=== PATIENT | male | born 1995 | race Caucasian/White ===

== ENCOUNTER 2017-11-01 23:13 | Emergency (ER) | payer BC ==
--- NOTE | 2017-11-02 01:16 | ED Physician Documentation ---
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 He took his pulse (manually) and rate was 130s. He felt subsequent, sudden improvement followed by episodic rapid palpitations. He had glass of wine earlier tonight as well as edible cannabis, but he has had the same amount of the same cannabis many times before and has not has similar reaction Review of Systems Cardiac: reports: Palpitations. denies: Chest pain / pressure, Pedal edema, Calf pain Respiratory: reports: Reviewed and negative GI: reports: Reviewed and negative Musculoskeletal: denies: Extremity swelling Neurologic: reports: Reviewed and negative PD PAST MEDICAL HISTORY - Past Medical History Past Medical History: No - Past Surgical History Past Surgical History: No - Allergies Allergies/Adverse Reactions: Allergies Allergy/AdvReac Type Severity Reaction Status Date / Time No Known Drug Allergies Allergy Verified 11/01/17 23:23 - Social History Does the pt smoke?: No Smoking Status: Never smoker Does the pt drink ETOH?: No Substance Use and Type: Marijuana - Immunizations Immunizations are current?: No PD ED PE NORMAL - Vitals Vital signs reviewed: Yes - General General: Alert and oriented X 3, No acute distress, Well developed/nourished - HEENT HEENT: Moist mucous membranes - Cardiac Cardiac: RRR, No murmur, No gallop, No rub - Respiratory Respiratory: No respiratory distress, Clear bilaterally - Abdomen Abdomen: Soft, Non tender - Derm Derm: Normal color, Warm and dry - Extremities Extremities: No edema Results - Vitals Vitals: Oxygen O2 Source Room air - Labs Labs: Laboratory Tests 11/02/17 11/02/17 01:46 01:46 WBC 7.3 RBC 4.80 Hgb 15.0 Hct 41.8 L MCV 86.9 MCH 31.2 H MCHC 35.9 RDW 12.7 Plt Count 226 MPV 9.0 Neut # 5.1 Lymph # 1.4 L [place] # 0.7 Eos # 0.0 Baso # 0.0 Absolute Nucleated RBC 0.00 Nucleated RBC % 0.0 Sodium 133 L Potassium 3.4 L Chloride 99 L Carbon Dioxide 22 Anion Gap 12.0 BUN 15 Creatinine 0.9 Estimated GFR (MDRD) 107 Glucose 104 H Calcium 9.5 Total Bilirubin 4.4 H AST 20 ALT 14 Alkaline Phosphatase 41 L Total Protein 7.6 Albumin 5.1 Globulin 2.5 Albumin/Globulin Ratio 2.0 Lipase 11 L PD MEDICAL DECISION MAKING - ED course Complexity details: reviewed results, re-evaluated patient, considered differential, d/w patient ED course: Patient had sinus rhythm during ED stay on monitor with occasional elevations to 120s and 130 [address] without BP abnormalities. blood tests are nondiagnostic; bilirubin is rather elevated (4.4) but no other significant liver test abnormalities. I discussed test results with patient and advised him to return if worse but to f/u with PMD for possible other tests and/or retest of abnormal tests. [place], Rotors syndrome are included on differential at this time. Departure - Departure Disposition: 01 Home, Self Care Clinical Impression: Palpitations, Hyperbilirubinemia Condition: Good Instructions: ED Palpitations Comments: Follow up with your primary care physician within 1 week. Your bilirubin was elevated today; this would not explain the symptoms you have been having, but you might need further testing to determine the reason for this abnormal test. Discharge Date/Time: 11/02/17 03:36
[2017-11-02 01:57] LABS: BASOPHILS % (AUTO) 0.6 %; EOSINOPHILS % (AUTO) 0.6 %; LYMPHOCYTES # (AUTO) 1.4 10^3/uL (1.5-3.5); LYMPHOCYTES % (AUTO) 19.5 %; MEAN CORPUSCULAR HEMOGLOBIN 31.2 pg (27.0-31.0); MEAN CORPUSCULAR HGB CONC 35.9 g/dL (32.0-36.0); MEAN CORPUSCULAR VOLUME 86.9 fL (80.0-94.0); MONOCYTES # (AUTO) 0.7 10^3/uL (0.0-1.0); MONOCYTES % (AUTO) 9.2 %; NEUTROPHILS # (AUTO) 5.1 10^3/uL (1.5-6.6); NEUTROPHILS % (AUTO) 70.1 %; PLT - PLATELET COUNT 226 10^3/uL (130-450); RED CELL DISTRIBUTION WIDTH 12.7 % (12.0-15.0); WHITE BLOOD COUNT 7.3 x10^3/uL (4.8-10.8)
[2017-11-02 02:07] LABS: ALBUMIN 5.1 g/dL (3.2-5.5); BILIRUBIN,TOTAL 4.4 mg/dL (0.2-1.0); CALCIUM 9.5 mg/dL (8.5-10.3); CREATININE 0.9 mg/dL (0.6-1.2); TOTAL PROTEIN 7.6 g/dL (6.7-8.2)
[2017-11-02 03:11] VITALS: BP 108/62
== END 2017-11-02 03:36 | disposition home or self-care (01) ==
LOC: ED 23:13
DX: R00.2 Palpitations (principal); E80.6 Other disorders of bilirubin metabolism
CPT/HCPCS: 36415; 80053; 83690; 85025; 99283

== ENCOUNTER 2017-11-08 13:52 | Outpatient (CLI) | payer BC ==
[2017-11-08 17:56] LABS: ALBUMIN 5.3 g/dL (3.2-5.5); ALBUMIN/GLOBULIN RATIO 1.8 (1.0-2.2); BILIRUBIN,TOTAL 2.3 mg/dL (0.2-1.0); CALCIUM 9.6 mg/dL (8.5-10.3); CREATININE 0.8 mg/dL (0.6-1.2); TOTAL PROTEIN 8.3 g/dL (6.7-8.2)
[2017-11-08 18:02] LABS: BASOPHILS % (AUTO) 0.6 %; EOSINOPHILS # (AUTO) 0.1 10^3/uL (0.0-0.7); EOSINOPHILS % (AUTO) 2.7 %; HGB - HEMOGLOBIN 15.7 g/dL (14.0-18.0); LYMPHOCYTES # (AUTO) 2.1 10^3/uL (1.5-3.5); LYMPHOCYTES % (AUTO) 41.8 %; MEAN CORPUSCULAR HEMOGLOBIN 30.5 pg (27.0-31.0); MEAN CORPUSCULAR HGB CONC 34.5 g/dL (32.0-36.0); MEAN CORPUSCULAR VOLUME 88.6 fL (80.0-94.0); MEAN PLATELET VOLUME 10.1 fL (7.4-11.4); MONOCYTES # (AUTO) 0.4 10^3/uL (0.0-1.0); MONOCYTES % (AUTO) 8.7 %; NEUTROPHILS # (AUTO) 2.3 10^3/uL (1.5-6.6); NEUTROPHILS % (AUTO) 46.2 %; PLT - PLATELET COUNT 246 10^3/uL (130-450); RED BLOOD COUNT 5.13 10^6/uL (4.70-6.10)
== END 2017-11-08 13:53 | disposition home or self-care (01) ==
LOC: LAB.F 13:52
PROVIDERS: ATTEND Physician Assistant Medical
DX: R17 Unspecified jaundice (principal)
CPT/HCPCS: 36415; 80053; 85025

== ENCOUNTER 2017-11-13 14:26 | Emergency (ER) | payer BC ==
--- NOTE | 2017-11-13 15:17 | XRAY Preliminary Report ---
Exam: XR CHEST 2 VIEW X-RAY IMPRESSION: No acute cardiopulmonary abnormality. [facility] SITE ID: [id number]
--- NOTE | 2017-11-13 15:17 | XRAY Report ---
EXAM: CHEST RADIOGRAPHY EXAM DATE: 11/13/2017 03:04 PM. CLINICAL HISTORY: Chest pain. COMPARISON: None. TECHNIQUE: 2 views. FINDINGS: Lungs/Pleura: No focal opacities evident. No pleural effusion. No pneumothorax. Normal volumes. Mediastinum: Normal cardiomediastinal contour. Other: Mild convex curvature of the upper thoracic spine. IMPRESSION: No acute cardiopulmonary abnormality. [facility] Referring Provider Line: [phone] SITE ID: [id number]
[2017-11-13 15:30] LABS: BASOPHILS % (AUTO) 0.6 %; EOSINOPHILS # (AUTO) 0.3 10^3/uL (0.0-0.7); EOSINOPHILS % (AUTO) 5.7 %; HGB - HEMOGLOBIN 15.4 g/dL (14.0-18.0); LYMPHOCYTES # (AUTO) 1.7 10^3/uL (1.5-3.5); LYMPHOCYTES % (AUTO) 34.7 %; MEAN CORPUSCULAR HEMOGLOBIN 30.5 pg (27.0-31.0); MEAN CORPUSCULAR HGB CONC 34.6 g/dL (32.0-36.0); MEAN CORPUSCULAR VOLUME 88.2 fL (80.0-94.0); MEAN PLATELET VOLUME 9.5 fL (7.4-11.4); MONOCYTES # (AUTO) 0.5 10^3/uL (0.0-1.0); MONOCYTES % (AUTO) 9.4 %; NEUTROPHILS # (AUTO) 2.5 10^3/uL (1.5-6.6); NEUTROPHILS % (AUTO) 49.6 %; PLT - PLATELET COUNT 248 10^3/uL (130-450); RED BLOOD COUNT 5.03 10^6/uL (4.70-6.10); RED CELL DISTRIBUTION WIDTH 12.7 % (12.0-15.0)
[2017-11-13 15:42] LABS: ALBUMIN 4.9 g/dL (3.2-5.5); ALBUMIN/GLOBULIN RATIO 1.6 (1.0-2.2); BILIRUBIN,TOTAL 1.6 mg/dL (0.2-1.0); CALCIUM 9.9 mg/dL (8.5-10.3); CREATININE 0.7 mg/dL (0.6-1.2); TOTAL PROTEIN 7.9 g/dL (6.7-8.2)
--- NOTE | 2017-11-13 16:00 | ED Physician Documentation ---
History of Present Illness - Stated complaint Stated Complaint: CHEST PX - Chief complaint Chief Complaint: General - History obtained from History obtained from: Patient, Family - History of Present Illness Pain level max: 4 Pain level now: 0 Quality: sharp Improved by: nothing Worsened by: deep breathing - Additonal information Additional information: Patient is a 22-year-old male who presents to the emergency department with left -sided chest pain intermittently for the past several months. Occasionally radiates to the left arm. He was seen here recently for palpitations after edible marijuana and wine one night had no acute findings at that time other than an elevated bilirubin. No fevers, vomiting, diarrhea, abdominal pain. Had been on adderall for years, but stopped it a month ago. Was prescribed sertraline, but only took this for 1 week. Review of Systems Ten Systems: 10 systems reviewed and negative Constitutional: denies: Fever, Chills Ears: denies: Ear pain Nose: reports: Rhinorrhea / runny nose, Congestion Throat: denies: Sore throat Cardiac: denies: Pedal edema, Calf pain Respiratory: reports: Cough (non-productive). denies: Dyspnea, Wheezing GI: denies: Abdominal Pain, Nausea, Vomiting, Diarrhea Skin: denies: Rash Musculoskeletal: denies: Neck pain, Back pain Neurologic: denies: Focal weakness, Numbness, Headache Psychiatric: reports: Anxiety PD PAST MEDICAL HISTORY - Past Medical History Past Medical History: Yes Cardiovascular: Other (palpitations) Psych: Anxiety - Past Surgical History Past Surgical History: No - Present Medications Home Medications: Ambulatory Orders Medication Instructions Recorded Confirmed Propranolol HCl 20 mg PO TID 11/13/17 11/13/17 - Allergies Allergies/Adverse Reactions: Allergies Allergy/AdvReac Type Severity Reaction Status Date / Time No Known Drug Allergies Allergy Verified 11/01/17 23:23 - Social History Does the pt smoke?: No Smoking Status: Never smoker Does the pt drink ETOH?: No - Immunizations Immunizations are current?: No PD ED PE NORMAL - Vitals Vital signs reviewed: Yes - General General: Alert and oriented X 3, No acute distress, Well developed/nourished - HEENT HEENT: Moist mucous membranes - Neck Neck: Supple, no meningeal sign - Cardiac Cardiac: RRR, Strong equal pulses, Other (TTP over the L anterior chest wall.) - Respiratory Respiratory: No respiratory distress, Clear bilaterally - Abdomen Abdomen: Soft, Non tender, Non distended - Derm Derm: Warm and dry, No rash - Extremities Extremities: No edema, No calf tenderness / cord - Neuro Neuro: Alert and oriented X 3 - Psych Psych: Normal mood, Normal affect Results - Vitals Vitals: Vital Signs - 24 hr 11/13/17 11/13/17 11/13/17 14:39 15:57 16:48 Temperature 36.7 C Heart Rate 84 69 57 L Respiratory 16 16 17 Rate Blood Pressure 110/78 121/76 133/87 H O2 Saturation 98 98 99 Oxygen O2 Source Room air - EKG (time done) 1433 Rate: Rate (enter#) (88) Rhythm: NSR [place]: Normal Intervals: Normal NM QRS: Normal Ischemia: Normal ST segments Computer interpretation: Agree with computer - Labs Labs: Laboratory Tests 11/13/17 11/13/17 11/13/17 15:25 15:25 15:25 WBC 5.0 RBC 5.03 Hgb 15.4 Hct 44.4 MCV 88.2 MCH 30.5 MCHC 34.6 RDW 12.7 Plt Count 248 MPV 9.5 Neut # 2.5 Lymph # 1.7 [place] # 0.5 Eos # 0.3 Baso # 0.0 Absolute Nucleated RBC 0.00 Nucleated RBC % 0.0 Sodium 137 Potassium 3.8 Chloride 100 L Carbon Dioxide 28 Anion Gap 9.0 BUN 12 Creatinine 0.7 Estimated GFR (MDRD) 142 Glucose 83 Calcium 9.9 Total Bilirubin 1.6 H AST 19 ALT 15 Alkaline Phosphatase 42 Troponin I < 0.04 Total Protein 7.9 Albumin 4.9 Globulin 3.0 Albumin/Globulin Ratio 1.6 Lipase 28 - Rads (name of study) cxr Radiology: Prelim report reviewed, EMP read contemporaneously, See rad report ( normal) PD MEDICAL DECISION MAKING - ED course Complexity details: reviewed old records, reviewed results, re-evaluated patient , considered differential (No ST elevation [place], no aortic dissection, no PE, no tension pneumothorax, no aortic aneurysm), d/w patient, d/w family ED course: Patient is a 22-year-old male who presents to the emergency department with atypical chest pain. No evidence of pericarditis or myocarditis. No evidence of pulmonary embolus, aortic dissection or aneurysm. He is well-appearing, nontoxic. Afebrile. No acute findings on chest x-ray, EKG or laboratory testing. Given Toradol and dexamethasone for possible pleurisy? Will have him follow-up with his doctor for further evaluation and care. Patient and family counseled regarding signs and symptoms for which I believe and urgent re- evaluation would be necessary. Patient with good understanding of and agreement to plan and is comfortable going home at this time This document was made in part using voice recognition software. While efforts are made to proofread this document, sound alike and grammatical errors may occur. Departure - Departure Disposition: 01 Home, Self Care Clinical Impression: Chest pain Qualifiers: Chest pain type: unspecified Qualified Code(s): R07.9 - Chest pain, unspecified Condition: Good Instructions: ED Chest Pain Atypical Unkn Cause Follow-Up: your,doctor in 1 week [Other] Comments: Return if you worsen. the cause of your symptoms is unclear today. Make sure to follow up with your doctor on Wednesday as scheduled. You may benefit from thyroid testing and a holter monitor if these have not been done in the past. Discharge Date/Time: 11/13/17 16:48
[2017-11-13] MEDS ORDERED: KETOROLAC 60 MG/2 ML VIAL IM STA (16:22)
[2017-11-13] MEDS ORDERED: DEXAMETHASONE 10 MG/ML VIAL PO STA (16:22)
[2017-11-13] MEDS ORDERED: CHERRY SYRUP 10 ML UDC PO ONE (16:34)
[2017-11-13 16:48] VITALS: BP 133/87
== END 2017-11-13 16:48 | disposition home or self-care (01) ==
LOC: ED 14:26
DX: R07.9 Chest pain, unspecified (principal)
CPT/HCPCS: 36415; 71046; 80053; 83690; 84484; 85025; 93005; 96372; 99283; 99285; A9270

== ENCOUNTER 2017-11-15 15:11 | Outpatient (CLI) | payer BC ==
[2017-11-15 18:21] LABS: ALBUMIN 4.7 g/dL (3.2-5.5); ALBUMIN/GLOBULIN RATIO 2.1 (1.0-2.2); BILIRUBIN,DIRECT 0.1 mg/dL (0.1-0.5); BILIRUBIN,TOTAL 1.1 mg/dL (0.2-1.0); CALCIUM 9.2 mg/dL (8.5-10.3); CREATININE 0.7 mg/dL (0.6-1.2); TOTAL PROTEIN 6.9 g/dL (6.7-8.2)
== END 2017-11-15 15:12 | disposition home or self-care (01) ==
LOC: LAB.F 15:11
PROVIDERS: ATTEND Physician Assistant Medical
DX: R17 Unspecified jaundice (principal)
CPT/HCPCS: 36415; 80053; 82247; 82248

== ENCOUNTER 2017-12-27 14:09 | Outpatient (CLI) | payer BC ==
[2017-12-27 18:57] LABS: BILIRUBIN,DIRECT 0.2 mg/dL (0.1-0.5); BILIRUBIN,TOTAL 2.3 mg/dL (0.2-1.0); TOTAL PROTEIN 7.5 g/dL (6.7-8.2)
== END 2017-12-27 14:10 ==
LOC: LAB.S 14:09
PROVIDERS: ATTEND Internal Medicine
DX: E80.4 Gilbert syndrome (principal)
CPT/HCPCS: 36415; 80076

== ENCOUNTER 2021-10-14 11:48 | Outpatient (CLI) | payer BC ==
[2021-10-14 12:06] LABS: BASOPHILS % (AUTO) 0.9 %; EOSINOPHILS % (AUTO) 1.2 %; HCT - HEMATOCRIT 46.3 % (42.0-52.0); HGB - HEMOGLOBIN 16.4 g/dL (14.0-18.0); LYMPHOCYTES # (AUTO) 1.5 10^3/uL (1.5-3.5); LYMPHOCYTES % (AUTO) 44.5 %; MEAN CORPUSCULAR HEMOGLOBIN 30.8 pg (27.0-31.0); MEAN CORPUSCULAR HGB CONC 35.4 g/dL (32.0-36.0); MEAN PLATELET VOLUME 10.7 fL (7.4-11.4); MONOCYTES # (AUTO) 0.3 10^3/uL (0.0-1.0); NEUTROPHILS # (AUTO) 1.5 10^3/uL (1.5-6.6); NEUTROPHILS % (AUTO) 43.4 %; PLT - PLATELET COUNT 265 10^3/uL (130-450); RED BLOOD COUNT 5.32 10^6/uL (4.70-6.10); WHITE BLOOD COUNT 3.4 x10^3/uL (4.8-10.8)
[2021-10-14 12:34] LABS: T4 (THYROXINE) 8.54 ug/dL (6.09-12.23)
[2021-10-14 12:37] LABS: THYROID STIMULATING HORMONE 1.24 uIU/mL (0.34-5.60)
[2021-10-14 12:52] LABS: ALBUMIN 5.2 g/dL (3.2-5.5); ALBUMIN/GLOBULIN RATIO 1.7 (1.0-2.2); ALKALINE PHOSPHATASE 34 IU/L (42-121); ALT ALANINE AMINOTRANSFERASE 15 IU/L (10-60); AST ASPARTATE AMINOTRANSFERASE 15 IU/L (10-42); BILIRUBIN,TOTAL 3.3 mg/dL (0.2-1.0); BUN - BLOOD UREA NITROGEN 13 mg/dL (6-20); CALCIUM 9.9 mg/dL (8.5-10.3); CARBON DIOXIDE - CO2 27 mmol/L (21-32); CHLORIDE 97 mmol/L (101-111); CHOL/HDL RATIO 3.4 (<5.0); CHOLESTEROL 144 mg/dL; CREATININE 0.9 mg/dL (0.6-1.2); GFR - MDRD 103 (>89); GLUCOSE 92 mg/dL (70-100); HDL CHOLESTEROL 42 mg/dL; POTASSIUM 4.3 mmol/L (3.5-5.0); SODIUM 135 mmol/L (135-145); TOTAL PROTEIN 8.3 g/dL (6.7-8.2); TRIGLYCERIDES 37 mg/dL
== END 2021-10-14 11:49 | disposition home or self-care (01) ==
LOC: LAB 11:48
PROVIDERS: ATTEND Physician Assistant Medical
DX: Z51.81 Encounter for therapeutic drug level monitoring (principal); Z79.899 Other long term (current) drug therapy
CPT/HCPCS: 36415; 80053; 80061; 83721; 84436; 84443; 84480; 85025

== ENCOUNTER 2024-04-17 19:23 | Emergency (ER) | payer BC, MEDICAID ==
[2024-04-17 19:45] VITALS: BP 110/68; O2SAT 100
--- NOTE | 2024-04-17 20:11 | ED Physician Documentation ---
PD HPI HEADACHE - Stated complaint Stated Complaint: HEAD PX - Chief complaint Chief Complaint: Neuro - History obtained from History obtained from: Patient - History of Present Illness Pain level max: 7 Pain level now: 7 Location: Front, Left Quality: Throbbing, Aching, Other (Gradual onset) Associated symptoms: Nausea. No: Fever, Stiff neck, Weakness, Numbness, Syncope, Seizure Improved by: Rest Worsened by: Light, Noise Contributing factors: No: Anticoagulated, Possible carbon monoxide, Hypertension, Recent illness Recently seen: Not recently seen - Additional information Additional information: Patient is a 28-year-old male who presents to the emergency department complaining of a left-sided headache today. He has a longstanding history of migraines. He states that he also lost vision in his left eye for about 30 seconds. He states that few minutes later he lost vision in both of his eyes for a few moments. He denies any falls or trauma. He states he had difficulty walking when the headache started. Headache is similar to prior migraines. No fevers. No cough or congestion. No neck pain. No back pain. Not on blood thinners. Symptoms started about 2 hours prior to arrival. Review of Systems Constitutional: denies: Fever, Chills Nose: denies: Rhinorrhea / runny nose, Congestion GI: denies: Vomiting Skin: denies: Rash Musculoskeletal: denies: Neck pain, Back pain Neurologic: denies: Headache PD PAST MEDICAL HISTORY - Past Medical History Past Medical History: Yes Cardiovascular: Other Neuro: Migraines Psych: Anxiety Other Past Medical History: hyperbilirubin - Past Surgical History Past Surgical History: No - Present Medications Home Medications: Ambulatory Orders Medication Instructions Recorded Confirmed Gabapentin [Neurontin] 300 mg PO BID 04/17/24 04/17/24 Quetiapine Fumarate [Quetiapine 50 mg PO BID 04/17/24 04/17/24 Fumarate ER] - Allergies Allergies/Adverse Reactions: Allergies Allergy/AdvReac Type Severity Reaction Status Date / Time No Known Drug Allergies Allergy Verified 04/17/24 19:31 - Social History Does the pt smoke?: No Smoking Status: Never smoker Does the pt drink ETOH?: No - Immunizations Immunizations are current?: No - POLST Patient has POLST: No PD ED PE NORMAL - Vitals Vital signs reviewed: Yes - General General: Alert and oriented X 3, No acute distress - HEENT HEENT: Atraumatic, PERRL, EOMI, Ears normal, Moist mucous membranes - Neck Neck: Supple, no meningeal sign, No bony TTP - Cardiac Cardiac: RRR, Strong equal pulses - Respiratory Respiratory: No respiratory distress, Clear bilaterally - Abdomen Abdomen: Soft, Non tender, Non distended - Back Back: No CVA TTP, No spinal TTP - Derm Derm: Warm and dry - Extremities Extremities: No edema, No calf tenderness / cord - Neuro Neuro: Alert and oriented X 3, 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4 Eos # (Auto) 0.1 Baso # (Auto) 0.0 Absolute Nucleated RBC 0.00 Nucleated RBC % 0.0 Sodium 138 Potassium 3.5 Chloride 102 Carbon Dioxide 31 Anion Gap 5.0 L BUN 6 Creatinine 0.7 Estimated GFR (MDRD) 135 Glucose 113 H Calcium 10.0 Total Bilirubin 1.4 H AST 23 ALT 25 Alkaline Phosphatase 42 Total Protein 7.5 Albumin 5.1 Globulin 2.4 Albumin/Globulin Ratio 2.1 Lipase 11 - Rads (name of study) head CT Relevant Findings:: Final report received, See rad report PD Medical Decision Making - ED course Complexity details: reviewed results, re-evaluated patient, considered differential, d/w patient ED course: 28-year-old male presents to the emergency department with what appears to be a complex migraine. No significant lab abnormalities. No acute findings on head CT. Given droperidol, Benadryl. Headache resolved. Tolerating p.o. without difficulty. No neurological deficits here. No evidence of stroke. NIH stroke scale of 0. Patient fully asymptomatic. Migraine is consistent with his prior migraines. Patient counseled regarding signs and symptoms for which I believe and urgent re-evaluation would be necessary. Patient with good understanding of and agreement to plan and is comfortable going home at this time This document was made in part using voice recognition software. While efforts are made to proofread this document, sound alike and grammatical errors may occur. Departure - Departure Disposition: 01 Home, Self Care Clinical Impression: Migraine Qualifiers: Migraine type: unspecified Status migrainosus presence: without status migrainosus Intractability: not intractable Qualified Code(s): G43.909 - Migraine, unspecified, not intractable, without status migrainosus Condition: Good Instructions: ED Headache Migraine Follow-Up: your,doctor in 1 week [Other] Comments: Your head CT does not show any acute abnormalities today. Your blood work does not show any acute abnormalities either. Your headache was treated with medication. Please follow-up with your doctor regarding your migraine headaches. Return if you worsen. Forms: PCP List Discharge Date/Time: 04/17/24 21:05
[2024-04-17 20:13] LABS: BASOPHILS % (AUTO) 0.6 %; EOSINOPHILS # (AUTO) 0.1 10^3/uL (0.0-0.7); EOSINOPHILS % (AUTO) 1.6 %; HCT - HEMATOCRIT 38.7 % (42.0-52.0); HGB - HEMOGLOBIN 13.1 g/dL (14.0-18.0); LYMPHOCYTES # (AUTO) 0.9 10^3/uL (1.5-3.5); LYMPHOCYTES % (AUTO) 13.3 %; MEAN CORPUSCULAR HEMOGLOBIN 30.8 pg (27.0-31.0); MEAN CORPUSCULAR HGB CONC 33.9 g/dL (32.0-36.0); MEAN CORPUSCULAR VOLUME 90.8 fL (80.0-94.0); MONOCYTES # (AUTO) 0.4 10^3/uL (0.0-1.0); MONOCYTES % (AUTO) 5.5 %; NEUTROPHILS % (AUTO) 78.8 %; PLT - PLATELET COUNT 210 10^3/uL (130-450); RED BLOOD COUNT 4.26 10^6/uL (4.70-6.10); RED CELL DISTRIBUTION WIDTH 12.6 % (12.0-15.0); WHITE BLOOD COUNT 6.4 x10^3/uL (4.8-10.8)
[2024-04-17] MEDS: diphenhydrAMINE INJ 50 MG/ML VIAL IVP STA (20:14)
[2024-04-17] MEDS: PANTOPRAZOLE 40 MG VIAL IVP STA (20:15)
[2024-04-17] MEDS: KETOROLAC 30 MG/ML VIAL IVP STA (20:15)
[2024-04-17] MEDS: DROPERIDOL 5 MG/2 ML VIAL IVP STA (20:15)
--- NOTE | 2024-04-17 20:15 | CT Report ---
PROCEDURE: Head WO INDICATIONS: headache, vision loss TECHNIQUE: Noncontrast 4.5 mm thick angled axial sections acquired from the foramen magnum to the vertex. For r adiation dose reduction, the following was used: automated exposure control, adjustment of mA and/or kV according to patient size. COMPARISON: None. FINDINGS: Image quality: Excellent. CSF spaces: Basal cisterns are patent. No extra-axial fluid collections. Ventricles are normal in size and shape. Brain: No midline shift. No intracranial masses or hemorrhage. [place]-white matter interface is norm al. Skull and face: Calvarium and visualized facial bones are intact, without suspicious lesions. Sinuses: Visualized sinuses and mastoids are clear. IMPRESSION: No acute intracranial pathology. Reviewed by: Mark Stoddard MD on 04/17/2024 8:14 PM PDT Approved by: Mark Stoddard MD on 04/17/2024 8:14 PM PDT Station ID: [id number]
[2024-04-17 20:30] LABS: ALBUMIN 5.1 g/dL (3.2-5.5); ALBUMIN/GLOBULIN RATIO 2.1 (1.0-2.2); BILIRUBIN,TOTAL 1.4 mg/dL (0.2-1.0); CREATININE 0.7 mg/dL (0.6-1.3); POTASSIUM 3.5 mmol/L (3.5-4.5); TOTAL PROTEIN 7.5 g/dL (6.4-8.9)
[2024-04-17] MEDS: SODIUM CHLORIDE 0.9% 1,000 ML IV STA (21:01)
== END 2024-04-17 21:05 | disposition home or self-care (01) ==
LOC: ED 19:23
DX: G43.909 Migraine, unspecified, not intractable, without status migrainosus (principal)
CPT/HCPCS: 36415; 70450; 80053; 83690; 85025; 96374; 96375; 99283; 99284; J1200